=== PATIENT | female | born 1985 | race Hispanic/Latino ===

== ENCOUNTER 2020-05-29 13:27 | Emergency (ER) | payer BC ==
[~2020-05-29] VITALS: Ht 175.3 cm; Wt 111.1 kg
[~2020-05-29 13:27] MED LIST: CLARITIN10 M2 PO; FARXIGA10 MG PO; METFORMIN HCL500 MG PO; OZEMPIC1 MG/0.75 INJ
[2020-05-29 15:16] VITALS: BP 119/61
== END 2020-05-29 15:19 | disposition home or self-care (01) ==
LOC: ER 13:37
DX: U07.1 COVID-19 (principal); R07.89 Other chest pain; R05 Cough; E11.9 Type 2 diabetes mellitus without complications
CPT/HCPCS: 71045; 99283